=== PATIENT | female | born 2005 | race American Indian/Alaskan Native ===

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

== ENCOUNTER 2024-10-16 10:58 | Emergency (ER) | payer SELFPAY ==
[2024-10-16] MEDS ORDERED: Metoclopramide 10 MG Tab PO ONE (10:59)
[2024-10-16 11:25] VITALS: BP 106/60; PULSE 97
[2024-10-16] MEDS ORDERED: Metoclopramide 10 MG Tab ONE (11:32)
== END 2024-10-16 11:34 | disposition home or self-care (01) ==
LOC: DL.ED 10:58
DX: A08.4 Viral intestinal infection, unspecified (principal); Z91.030 Bee allergy status; Z79.899 Other long term (current) drug therapy; Z86.16 Personal history of COVID-19
CPT/HCPCS: 99283; A9270

== ENCOUNTER 2025-05-12 12:07 | Emergency (ER) | payer SELFPAY ==
[2025-05-12] MEDS ORDERED: Sodium Chloride 0.9% 10 ML Syringe FLUSH PRN (12:39)
[2025-05-12] MEDS: Ondansetron 4 MG/2 ML SDV IVPUSH ONE (12:44)
[2025-05-12] MEDS: diphenhydrAMINE 50 MG/ML SDV IV ONE (12:44)
[2025-05-12 12:46] LABS: BASOPHILS PERCENT AUTO 0.2 % (0.0-1.0); EOSINOPHILS PERCENT AUTO 0.1 % (1.0-3.0); LYMPHOCYTES PERCENT AUTO 7.3 % (20.5-50.1); MONOCYTES PERCENT AUTO 7.2 % (2-8); NEUTROPHILS PERCENT AUTO 85.2 % (42.2-75.2); PLATELET COUNT,PLT 291 10^3/uL (150-450); RED BLOOD CELL COUNT 4.86 10^6/uL (4.2-5.4); WHITE BLOOD CELL COUNT,WBC 17.2 10^3/uL (5.0-10.0)
[2025-05-12 13:00] LABS: MONONUCLEOSIS SCREEN NEGATIVE
[2025-05-12 13:02] LABS: A/G RATIO 0.8; ALANINE AMINOTRANSFERASE,ALT 13 U/L (14-59); ASPARTATE AMNIOTRANSFERASE,AST 7 U/L (15-37); BILIRUBIN TOTAL 0.4 mg/dL (0.2-1.0); BLOOD UREA NITROGEN,BUN 10 mg/dL (7-18); CARBON DIOXIDE,CO2 24 mmol/L (21-32); CHLORIDE,CL 101 mmol/L (98-107); CREATININE 0.78 mg/dL (0.55-1.02); EST CRCL DRUG DOSING (CG) 107.70 mL/min; ESTIMATED GFR 111 mL/min (>=60); GLUCOSE RANDOM 89 mg/dL (70-99); POTASSIUM,K 3.5 mmol/L (3.5-5.1); PROTEIN TOTAL,TP 8.6 g/dL (6.4-8.2); SODIUM,NA 137 mmol/L (136-145)
[2025-05-12 13:05] LABS: LACTIC ACID 0.4 mmol/L (0.4-2.0)
[2025-05-12] MEDS: Ketorolac 30 MG/ML SDV IVPUSH ONE (13:55)
[2025-05-12 14:23] VITALS: BP 108/67; PULSE 96
== END 2025-05-12 14:14 | disposition home or self-care (01) ==
LOC: DL.ED 12:07
DX: B34.9 Viral infection, unspecified (principal); Z91.030 Bee allergy status; Z79.899 Other long term (current) drug therapy; Z86.16 Personal history of COVID-19
CPT/HCPCS: 36415; 80053; 83605; 83690; 83735; 85025; 86308; 87081; 87430; 94640; 96361; 96374; 96375; 99284; J1200; J1885; J2405; J2470; J7030; J7620; A9270-GY